=== PATIENT | male | born 1995 | race Caucasian/White ===

== ENCOUNTER → 2016-09-23 | Outpatient (CLI) | payer OTHER, BC ==
--- NOTE | 2016-09-23 16:22 | Diagnostic Imaging Report ---
EXAMINATION: Three views of the left ring finger. INDICATION: Injury smashing part of the ring finger in the car door. FINDINGS: There is a minimally displaced fracture involving the radial distal most aspect of the tuft of the distal phalanx of the left ring finger. The fractured fragment is 4 mm in size and it is about 1.5 mm displaced from the donor site. There is no dislocation or subluxation. No radiopaque foreign body. IMPRESSION: There is a 4 mm minimally displaced fracture fragment of the radial aspect of the tuft of the distal phalanx of the left ring finger. Report was faxed to the office of MARY ANN Marcelino at 4:21 p.m., by renee (for [facility]). Dictated by: Dictated on workstation # [id number]
== END ==
LOC: RAD 14:31
PROVIDERS: ATTEND Nurse Practitioner Family
DX: S67.195A Crushing injury of left ring finger, initial encounter (principal); S62.635A Displaced fracture of distal phalanx of left ring finger, initial encounter for closed fracture; V43.42XA Person boarding or alighting a car injured in collision with other type car, initial encounter; Y92.019 Unspecified place in single-family (private) house as the place of occurrence of the external cause; Y99.8 Other external cause status
CPT/HCPCS: 73140

== ENCOUNTER → 2017-09-08 | Outpatient (CLI) | payer BC ==
--- NOTE | 2017-09-08 14:29 | Diagnostic Imaging Report ---
INDICATION: Achilles pain. COMPARISON: None. FINDINGS: Two views of the left os calcis are obtained. No acute fracture, malalignment, or osseous destructive process is seen. The subtalar joint appears unremarkable. IMPRESSION: Negative left os calcis. Dictated by: Dictated on workstation # [id number]
== END ==
LOC: RAD 13:44
PROVIDERS: ATTEND Nurse Practitioner Family
DX: M79.605 Pain in left leg (principal)
CPT/HCPCS: 73650